=== PATIENT | male | born 1945 | race Caucasian/White ===

== ENCOUNTER 2017-06-19 14:33 | Outpatient (CLI) | payer MEDICARE ==
--- NOTE | 2017-06-19 16:46 | RAD ---
TWO VIEWS LUMBAR SPINE: History: Pain. Comparison: None. FINDINGS: Indeterminate fracture involving the T12 and L1 level. There is grade I retrolisthesis of L1 upon L2 , L2 upon L3, and L3 upon L4. Vacuum disc phenomenon at L4-5. Atherosclerosis of the aorta is noted. There are five lumbar type vertebral bodies. IMPRESSION: Indeterminate T12 and L1 compression fracture. Correlate clinically. Additional imaging as warranted . POS: [facility]
== END 2017-06-19 14:34 | disposition home or self-care (01) ==
LOC: TBSIIMAG 14:33
PROVIDERS: ATTEND Physician Assistant
DX: M54.5 Low back pain (principal); M48.55XA Collapsed vertebra, not elsewhere classified, thoracolumbar region, initial encounter for fracture
CPT/HCPCS: 72100

== ENCOUNTER 2017-07-16 14:22 | Outpatient (CLI) | payer MEDICARE, MEDICAID ==
--- NOTE | 2017-07-16 16:29 | RAD ---
TWO VIEWS LUMBAR SPINE: Comparison: 06-19-17 History: collapsed vertebra. FINDINGS: There is stable moderate loss of vertebral body height at T12 and mild to moderate loss of vertebral body height at L1. No significant change. Limited evaluation in the lateral projection due to motio n degradation. IMPRESSION: No significant change. POS: [facility]
== END 2017-07-16 14:23 | disposition home or self-care (01) ==
LOC: TBSIIMAG 14:22
PROVIDERS: ATTEND Neurological Surgery
DX: M48.56XA Collapsed vertebra, not elsewhere classified, lumbar region, initial encounter for fracture (principal)
CPT/HCPCS: 72100

== ENCOUNTER 2017-09-10 15:14 | Outpatient (CLI) | payer MEDICARE ==
--- NOTE | 2017-09-10 15:53 | RAD ---
LUMBAR SPINE TWO VIEWS: 09/10/17 HISTORY: Back pain. Fracture. Followup. COMPARISON: 07/16/17 and 06/19/17. FINDINGS: There are five lumbar type vertebrae. Compression fractures/deformities involving the T12 and L1 vert ebral bodies are unchanged from the previous exam. Other vertebral body heights are maintained. There is multilevel gas disc phenomenon and prominent osteophytosis. No new fractures are evident. Osseous structures are demineralized. There is calcification in the arterial structures. IMPRESSION: 1. Stable radiographic appearance of the T12 and L1 compression injuries. 2. Lumbar spondylosis. 3. Atherosclerosis. POS: [facility]
== END 2017-09-10 15:15 | disposition home or self-care (01) ==
LOC: TBSIIMAG 15:14
PROVIDERS: ATTEND Neurological Surgery
DX: M54.9 Dorsalgia, unspecified (principal); M47.816 Spondylosis without myelopathy or radiculopathy, lumbar region; I70.90 Unspecified atherosclerosis
CPT/HCPCS: 72100